=== PATIENT | male | born 1950 | race Caucasian/White ===

== ENCOUNTER 2019-01-28 09:39 | Emergency (ER) | payer BC, OTHER ==
[~2019-01-28] VITALS: Ht 165.1 cm; Wt 68.0 kg
[2019-01-28 09:56] VITALS: BP_SYST 154
--- NOTE | 2019-01-28 11:05 | NUR ---
Patient triaged and placed in ER bed 7. VSS and patient appears in no acute distress at this time. MD notified of need for ER evaluation.
--- NOTE | 2019-01-28 11:13 | NUR ---
Patient comes to ER in personal vehicle, [employer], verbal and ambulatory. Patient has complaint of LT side back of neck pain that started this morning. Patient describes the pain as sharp, that comes and goes. He states that it "comes like an earthquake 05/07, then is gone" No other complaint or injury at this time.
--- NOTE | 2019-01-28 11:15 | NUR ---
DR GANN at bedside for ER evaluation
--- NOTE | 2019-01-28 11:40 | NUR ---
Pt ambulating in the room at this time, VSS, respirations even and unlabored.
--- NOTE | 2019-01-28 12:46 | NUR ---
Patient returned from ultrasound in wheel chair escorted by tech, tolerated well with minimal discomfort.
[2019-01-28 14:11] VITALS: BP_SYST 138
--- NOTE | 2019-01-28 14:11 | NUR ---
Patient given written and verbal discharge instructions and verbalizes understanding. ER MD discussed with patient the results and treatment provided. Patient in stable condition. ID arm band removed. No Rx given. Patient educated on pain management and to follow up with PMD. Pain Scale 3/10 tolerable for patient . Opportunity for questions provided and answered. Medication side effect fact sheet provided.
== END 2019-01-28 14:11 | disposition home or self-care (01) ==
LOC: SED 09:39
DX: S16.1XXA Strain of muscle, fascia and tendon at neck level, initial encounter (principal); I10 Essential (primary) hypertension; X58.XXXA Exposure to other specified factors, initial encounter; Y93.89 Activity, other specified; Y92.89 Other specified places as the place of occurrence of the external cause; Y99.8 Other external cause status
CPT/HCPCS: 72050-TC; 93880; 99284